=== PATIENT | male | born 1980 | race Caucasian/White ===

== ENCOUNTER → 2019-01-17 | Outpatient (CLI) | payer OTHER ==
[2016-01-11 12:00] VITALS: BP 126/70
[~2019-01-17] MED LIST: IOHEXOL 350 MG/ML 100 ML VIAL. IV ONE
[2019-01-17 16:23] LABS: BASO # 0.1 x10^3/uL (0.0-0.2); BASO % 1 % (0-3); EOS # 0.2 x10^3/uL (0.0-0.7); EOS % 2 % (0-3); HEMATOCRIT 49.9 % (39.0-53.0); HEMOGLOBIN 16.8 g/dL (13.0-17.5); LYMPH # 2.9 x10^3/uL (1.0-4.8); LYMPH % 29 % (24-48); MEAN CORPUSCULAR HEMOGLOBIN 30 pg (25-35); MEAN CORPUSCULAR HGB CONC 34 g/dL (31-37); MEAN CORPUSCULAR VOLUME 88 fL (79-100); MONO # 0.7 x10^3/uL (0.0-1.1); MONO % 7 % (0-9); NEUT % 61 % (31-73); PLATELET COUNT 258 x10^3/uL (140-400); RED BLOOD COUNT 5.66 x10^6/uL (4.30-5.70); RED CELL DISTRIBUTION WIDTH 14.3 % (11.5-14.5); WHITE BLOOD COUNT 9.9 x10^3/uL (4.0-11.0)
[2019-01-17 16:32] LABS: C REACTIVE PROTEIN 6.2 mg/L (0-3.3); CALCIUM 9.2 mg/dL (8.5-10.1); CREATININE 0.8 mg/dL (0.7-1.3); GFR 108.2
--- NOTE | 2019-01-17 17:18 | RAD ---
INDICATION: Omni [id number] 75cc: Left sided chest pain, fever, productive cough COMPARISON: None. TECHNIQUE: Axial CT images obtained through the chest with contrast. One or more of the following individualized dose reduction techniques were utilized for this examination: 1. Automated exposure control; 2. Adjustment of the mA and/or kV according to patient size; 3. Use of iterative reconstruction technique. FINDINGS: Mild linear opacity left lung base. Mild linear opacity right midlung anteriorly. No evidence of pneumothorax. Liver is low density. Small amount of soft tissue density anterior mediastinum. Most commonly from residual thymus. Portion of ascending thoracic aorta obscured by motion but no aneurysm is seen. No embolus in the main, right main or left main pulmonary arteries. Cannot evaluate the more peripheral pulmonary arteries. There are some degenerative changes the spine. There are some prominent lymph nodes in the leonardo hepatis. IMPRESSION: 1. Mild linear opacities bilaterally. Given the morphology this could be secondary to atelectasis however if there is high clinical concern for infiltrate and early infiltrate is not excluded. 2. Liver is low density. Nonspecific but can be seen with fatty infiltration. Electronically signed by: Carlos Hdz MD (01/17/2019 5:15 PM) [facility]
== END | disposition home or self-care (01) ==
LOC: CT 15:41
PROVIDERS: ATTEND Family Medicine
DX: J20.8 Acute bronchitis due to other specified organisms (principal); K76.0 Fatty (change of) liver, not elsewhere classified
CPT/HCPCS: 36415; 71260; 80048; 85025; 85379; 86140; Q9967